=== PATIENT | female | born 1940 | race Caucasian/White ===

== ENCOUNTER → 2016-06-02 | Outpatient (CLI) | payer MEDICARE, BC ==
[~2016-06-02] MED LIST: ADVAIR 500-501 EACH IH; BREO ELLIP1 PUFF/DOS IH; CLINORIL DPS150 MG PO; COLACE-DPS100 MG PO; DELTASONE DPS10 MG PO; DELTASONE DPS20 MG PO; DUONEB DPS3 ML IH; FEOSOL-DPS325 MG PO; LASIX20 M1 PO; LEVAQUIN DPS750 MG PO; LEVAQUIN500 MG PO; MACROBID DPS100 MG PO; MERREM500 MG IV; MUCINEX600 MG PO; OMEPRAZOLE40 MG PO; PRILOSEC40 MG PO; PROBIOTIC1 EAC1 PO; PROVENTIL2.5 MG/0.5 IH; SINGULAIR10 MG PO; SPIRIVA18 MCG IH; THEOPHYLINE PO; THEOPHYLLINE A300 MG PO; ULORIC40 MG PO; VITAMIN D50000 UNIT PO; ZEBETA5 M1 PO; ZYRTEC DPS10 MG PO; ZYRTEC10 M3 PO
== END | disposition home or self-care (01) ==
LOC: THER.SSS 13:36 → CARD 13:36
DX: A49.8 Other bacterial infections of unspecified site (principal)

== ENCOUNTER → 2016-06-18 | Outpatient (CLI) | payer MEDICARE, BC | END | disposition home or self-care (01) | LOC: CARD 11:48 | DX: Z45.2 Encounter for adjustment and management of vascular access device (principal); Z79.2 Long term (current) use of antibiotics ==

== ENCOUNTER → 2016-06-19 | Outpatient (CLI) | payer MEDICARE, BC | END | disposition home or self-care (01) | LOC: PTH.S 16:06 | DX: B96.5 Pseudomonas (aeruginosa) (mallei) (pseudomallei) as the cause of diseases classified elsewhere (principal) ==

== ENCOUNTER → 2016-08-12 | Outpatient (CLI) | payer MEDICARE, BC | END | disposition home or self-care (01) | LOC: RAD.S 13:09 | DX: J44.9 Chronic obstructive pulmonary disease, unspecified (principal); J84.10 Pulmonary fibrosis, unspecified; J47.9 Bronchiectasis, uncomplicated; R91.8 Other nonspecific abnormal finding of lung field ==